=== PATIENT | female | born 1955 | race Caucasian/White ===

== ENCOUNTER → 2017-01-01 | Outpatient (CLI) | payer BC ==
[~2017-01-01] MED LIST: ANTIBIOTIC; ASPIRIN 81M81 MG/TA2 PO; CRANBERRY500 M3 PO; FISH OIL1000 MG PO; LASIX 20MG TABL20 MG PO; MULTIPLE VITAMI1 CAP PO; NORVASC2.5 MG PO; WATER PILL
== END ==
LOC: MC.RAD 07:54
DX: Z12.31 Encounter for screening mammogram for malignant neoplasm of breast (principal)

== ENCOUNTER → 2018-01-05 | Outpatient (CLI) | payer BC | LOC: MC.RAD 07:51 | DX: Z12.31 Encounter for screening mammogram for malignant neoplasm of breast (principal) ==

== ENCOUNTER → 2019-01-28 | Outpatient (CLI) | payer MEDICARE, BC | LOC: MC.RAD 06:58 | DX: Z12.31 Encounter for screening mammogram for malignant neoplasm of breast (principal) ==

== ENCOUNTER → 2020-03-27 | Outpatient (CLI) | payer MEDICARE, BC ==
[~2020-03-27] MED LIST changes: +LEXAPRO 10MG10 MG PO; +NORVASC 10MG10 MG PO; +PRINZIDE 25 MG-1 TAB PO
== END ==
LOC: MC.RAD 15:18
DX: Z12.31 Encounter for screening mammogram for malignant neoplasm of breast (principal)

== ENCOUNTER → 2021-03-28 | Outpatient (CLI) | payer MEDICARE, BC | LOC: MC.RAD 07:47 | DX: Z12.31 Encounter for screening mammogram for malignant neoplasm of breast (principal) ==

== ENCOUNTER → 2022-04-15 | Outpatient (CLI) | payer MEDICARE, BC | LOC: MC.RAD 07:58 | DX: Z12.31 Encounter for screening mammogram for malignant neoplasm of breast (principal) ==

== ENCOUNTER 2023-11-24 11:08 | Outpatient (CLI) | payer MEDICARE, BC ==
[~2023-11-24] VITALS: Ht 165.1 cm; Wt 90.5 kg
[2023-11-24 11:06] VITALS: BP 135/74; PULSE 69; TEMP 97.6
[~2023-11-24 11:08] MED LIST changes: +ADVIL200 MG PO; +LIPITOR 40MG TA40 MG PO; +NATURAL E400 IU PO; +NEXIUM 20MG20 MG PO; +VITAMIN D31000 I1 PO
[2023-11-24] MEDS ORDERED: Denosumab 60 MG/ML SYRINGE SQ ONE (11:15)
--- NOTE | 2023-11-24 11:41 | NUR ---
PT HERE FOR PROLIA INJECTION. VSS. INJECTION GIVEN TO BACK OF L UPPER ARM, PT TOLERATED WELL. DISCHARGED AMBULATORY TO HOME AT 1138.
== END 2023-11-24 11:38 | disposition home or self-care (01) ==
LOC: EUO 11:08
DX: M81.0 Age-related osteoporosis without current pathological fracture (principal)
CPT/HCPCS: J0897

== ENCOUNTER → 2024-05-17 | Outpatient (CLI) | payer MEDICARE | LOC: MC.RAD 08:14 | DX: Z12.31 Encounter for screening mammogram for malignant neoplasm of breast (principal) ==